=== PATIENT | female | born 1985 | race Caucasian/White ===

== ENCOUNTER 2020-11-12 15:32 | Outpatient (CLI) | payer OTHER, SELFPAY | END 2020-11-12 15:33 | disposition home or self-care (01) | LOC: ANHCOVIDVC 15:32 | PROVIDERS: PCP Family Medicine | DX: Z23 Encounter for immunization (principal) | CPT/HCPCS: 0001A; 91300 ==

== ENCOUNTER 2020-12-03 15:32 | Outpatient (CLI) | payer OTHER, SELFPAY | END 2020-12-03 15:33 | disposition home or self-care (01) | LOC: ANHCOVIDVC 15:32 | PROVIDERS: PCP Family Medicine | DX: Z23 Encounter for immunization (principal) | CPT/HCPCS: 0002A; 91300 ==

== ENCOUNTER 2025-02-22 13:22 | Outpatient (CLI) | payer OTHER, SELFPAY ==
--- NOTE | ~2025-02-22 | US_ITS ---
EXAM: Focused ultrasound examination of the soft tissues of the right medial thigh HISTORY: Localized swelling, mass and lump, unspecified . Patient has a personal history of melanoma with a history of a right groin lymph node removed in 2024. TECHNIQUE: Sonographic evaluation of the soft tissues of the right medial thigh was performed assessi ng grayscale appearance and color Doppler flow. COMPARISON: None. FINDINGS: Within the area of palpable concern (within the right medial thigh) is a well-circumscribed avascular focus of mixed echogenicity measuring 2.4 x 3.0 x 4.5 cm. Lateral to the focus of palpable concern, is a second area: A bilobed anechoic avascular focus measur ing 7.6 x 2.6 x 6.6 cm. Increased through transmission is identified. These two areas appear to be connected, and surrounded by soft tissue edema. Sonographic evaluation of the remainder of the soft tissues of the right medial thigh demonstrate juvencio ign fibrofatty and fibromuscular elements without a cystic or solid lesion of concern. IMPRESSION: Findings within the areas of palpable concern which may be related to patient's recent operative inte rvention. If clinical suspicion persists, cross-sectional imaging (preferably with MRI) is recommended. Reviewed, dictated and finalized at location A. IMPRESSION: Findings within the areas of palpable concern which may be related to patient's recent operative intervention. If clinical suspicion persists, cross-sectional imaging (preferably with MRI) i s recommended.
== END 2025-02-22 13:23 | disposition home or self-care (01) ==
DX: R22.9 Localized swelling, mass and lump, unspecified (principal)
CPT/HCPCS: 76882